=== PATIENT | female | born 2000 | race Caucasian/White ===

== ENCOUNTER 2020-12-27 15:10 | Emergency (ER) | payer OTHER ==
[2020-12-27 17:06] LABS: HEMOGLOBIN 14.3 gm/dl (12.3-15.3); RED BLOOD COUNT 4.84 M/UL (4.00-5.10)
[2020-12-27 17:12] LABS: BUN/CREATININE RATIO 13 (0-10)
[2020-12-27] MEDS ORDERED: PROTONIX20 MG PO (17:41)
[2020-12-27] MEDS ORDERED: PEPCID20 MG PO (17:41)
== END 2020-12-27 18:30 | disposition home or self-care (01) ==
LOC: ER1 15:10
PROVIDERS: Physician Assistant
DX: K92.1 Melena (principal); Z86.16 Personal history of COVID-19
CPT/HCPCS: 80053; 81001; 84703; 85025; 99284